=== PATIENT | male | born 1940 | race Caucasian/White ===

== ENCOUNTER 2021-05-26 05:58 | Day surgery (SDC) | payer MEDICARE, OTHER ==
[2021-05-26] VITALS (14 sets, daily range): BP systolic 128–185; BP diastolic 59–96
[~2021-05-26] VITALS: Ht 172.7 cm; Wt 78.1 kg
[2021-05-26] MEDS ORDERED: normal saline 1,000 ML IV SCH ×2 (06:25→09:40)
[2021-05-26] MEDS ORDERED: diphenhydrAMINE 25mg capsule PO PRN ×2 (06:25→09:40)
[2021-05-26] MEDS ORDERED: ASCO-10 PO (06:30)
[2021-05-26] MEDS ORDERED: MULT-1085 PO (06:30)
[2021-05-26] MEDS ORDERED: CARV3.1244 PO (06:30)
[2021-05-26] MEDS ORDERED: ASPI81TA52 PO (06:30)
[2021-05-26] MEDS ORDERED: VITA-268 PO (06:30)
[2021-05-26] MEDS ORDERED: RIVA10TA PO (06:30)
[2021-05-26] MEDS ORDERED: ATOR40TA72 PO (06:30)
[2021-05-26] MEDS ORDERED: OXYB10TA30 PO (06:30)
[2021-05-26 06:59] LABS: ALBUMIN 4.1 G/DL (3.4-5.0); ANION GAP 10 (8-16); BLOOD UREA NITROGEN 16 MG/DL (7-18); BUN/CREATININE RATIO 16.5 (5.4-32.0); CHLORIDE 109 MMOL/L (99-107); CREATININE 0.97 MG/DL (0.60-1.10); GLUCOSE 94 MG/DL (70-104); MAGNESIUM 2.1 MG/DL (1.5-2.4); POTASSIUM 3.5 MMOL/L (3.5-5.1); SODIUM 145 MMOL/L (135-145); TOTAL CARBON DIOXIDE 26.1 MMOL/L (24-32); eGFR 75 ML/MIN
[2021-05-26 07:03] LABS: BASOPHILS # (AUTO) 0.1 X10'3 (0-0.2); EOSINOPHILS # (AUTO) 0.5 X10'3 (0-0.9); EOSINOPHILS % (AUTO) 5.8 % (0-6); HEMATOCRIT 47.5 % (42.0-52.0); HEMOGLOBIN 16.1 g/dl (14.0-17.9); LYMPHOCYTES # (AUTO) 1.9 X10'3 (1.1-4.8); LYMPHOCYTES % (AUTO) 23.6 % (21-51); MEAN CORPUSCULAR HEMOGLOBIN 32.9 PG (27.0-31.0); MEAN CORPUSCULAR HGB CONC 33.9 g/dL (33.0-36.5); MEAN CORPUSCULAR VOLUME 97.1 FL (78-98); MEAN PLATELET VOLUME 7.6 FL (7.4-10.4); MONOCYTES # (AUTO) 0.6 X10'3 (0-0.9); MONOCYTES % (AUTO) 7.9 % (2-12); NEUTROPHILS % (AUTO) 61.7 % (42-75); PLATELET COUNT 272 X10'3 (140-440); RED BLOOD COUNT 4.89 X10'6 (4.70-6.10); RED CELL DISTRIBUTION WIDTH 13.5 % (11.5-14.5); WHITE BLOOD COUNT 8.1 X10'3 (4.5-11.0)
[2021-05-26] MEDS ORDERED: midazolam 1 mg/ML 2ml injection ONE ×5 (07:18→09:58)
[2021-05-26] MEDS ORDERED: iohexol 350 MG/ML 50ML vial IV ONE ×4 (07:18→11:01)
[2021-05-26] MEDS ORDERED: heparin 1,000unit/ml 10ml vial 10 ML ONE ×2 (07:18→09:44)
[2021-05-26] MEDS ORDERED: fentaNYL/PF 50MCG/1 ML 2ML syringe ONE ×3 (07:18→09:46)
[2021-05-26] MEDS ORDERED: LIDOcaine 1% (10mg/ml)w/preservative injection 20ml MDV ONE ×2 (07:18→09:44)
[2021-05-26] MEDS ORDERED: iohexol 350MG/ML 100ml bottle IV ONE ×4 (07:19→09:44)
[2021-05-26] MEDS ORDERED: nitroGLYCERIN-Tridil 50MG/D5W 250 ML IV ONE (07:32)
[2021-05-26] MEDS ORDERED: verapamil 2.5 mg/ml inj IV ONE (07:32)
[2021-05-26] MEDS ORDERED: clopidogrel 300mg tablet ONE (08:52)
[2021-05-26] MEDS ORDERED: nitroGLYCERIN 0.4mg SUBLingual tab SL ONE (09:23)
[2021-05-26] MEDS ORDERED: mag hydrox/Alum hydrox/simeth 30ml oral suspension PO STA (09:29)
[2021-05-26] MEDS ORDERED: HYDROcodone/acetaminophen 10/325mg tab PO PRN (09:35)
[2021-05-26] MEDS ORDERED: HYDROcodone/acetaminophen 5mg/325mg tablet PO PRN (09:35)
[2021-05-26] MEDS ORDERED: proCHLORperazine 10 MG/2 ml inj IV PRN (09:35)
[2021-05-26] MEDS ORDERED: ondansetron/PF 4mg/2ml inj IV PRN (09:35)
[2021-05-26] MEDS ORDERED: LIDOcaine 2% (20 mg/ml) 5ml cardiac syringe ONE (10:33)
== END 2021-05-26 16:05 | disposition home or self-care (01) ==
LOC: SSTAY O 05:58
PROVIDERS: ATTEND Internal Medicine Cardiovascular Disease
DX: R07.89 Other chest pain (principal); I25.10 Atherosclerotic heart disease of native coronary artery without angina pectoris; N40.0 Benign prostatic hyperplasia without lower urinary tract symptoms; E78.00 Pure hypercholesterolemia, unspecified; Z98.890 Other specified postprocedural states; Z86.73 Personal history of transient ischemic attack (TIA), and cerebral infarction without residual deficits; Z72.89 Other problems related to lifestyle; Z79.899 Other long term (current) drug therapy
CPT/HCPCS: 36415; 80048; 83735; 85025; 85610; 93005; 93458; 93571; 93572; 99152; 99153; C1725; C1751; C1760; C1769; C1874; C1894; C9600; C9601; J1644; J2250; J3010; J3490; J7030; Q0163; Q9967; A4620; A6258